=== PATIENT | female | born 1965 ===

== ENCOUNTER 2024-12-07 07:07 | Day surgery (SDC) | payer OTHER ==
[2024-12-01 13:18] VITALS: BP 137/83
[~2024-12-07] VITALS: Ht 160 cm; Wt 107.0 kg
[~2024-12-07 07:07] MED LIST: LOSARTAN-HCTZ1 EAC2 PO; METFORMIN HCL500 MG; SYNTHROID200 MCG PO
[2024-12-07] MEDS ORDERED: IBU600 MG PO (12:12)
== END 2024-12-07 16:15 | disposition home or self-care (01) ==
LOC: CIR.AMB 07:07
PROVIDERS: ATTEND Obstetrics & Gynecology Gynecology
DX: N85.00 Endometrial hyperplasia, unspecified (principal)